=== PATIENT | male | born 1975 | race Caucasian/White ===

== ENCOUNTER 2018-01-24 14:03 | Emergency (ER) | payer MEDICARE, OTHER ==
[2018-01-24] MEDS: DIPHTH/TET/ACEL PERTUSS (ADULT) 0.5 ML VIAL IM* (14:46)
[2018-01-24] MEDS ORDERED: morphine 4 MG/ML VIAL IM (15:39)
[2018-01-24] MEDS ORDERED: morphine 4 MG/ML VIAL IV (15:56)
[2018-01-24] MEDS ORDERED: CEFAZOLIN 1 GM INJ IM (16:00)
[2018-01-24] MEDS ORDERED: CEFAZOLIN 2 GM/50 ML (PMX) 50 ML IVPB (16:00)
[2018-01-24] MEDS: LIDOCAINE 1% (MDV) 10 ML INJ INFIL (16:06)
[2018-01-24] MEDS: LIDOCAINE 1% (MDV) 20 ML INJ SC (16:37)
[2018-01-24] MEDS: CEFAZOLIN 1 GM INJ IM (17:12)
== END 2018-01-24 17:31 | disposition home or self-care (01) ==
LOC: FTE 14:03
DX: S61.210A Laceration without foreign body of right index finger without damage to nail, initial encounter (principal); S61.212A Laceration without foreign body of right middle finger without damage to nail, initial encounter; I10 Essential (primary) hypertension; S62.620B Displaced fracture of middle phalanx of right index finger, initial encounter for open fracture; W27.0XXA Contact with workbench tool, initial encounter; Y92.9 Unspecified place or not applicable; Z23 Encounter for immunization
CPT/HCPCS: 12004; 73130-RT; 90471; 90715; 96372; 99284-25